=== PATIENT | male | born 1935 | race Caucasian/White ===

== ENCOUNTER 2020-08-03 12:04 | Outpatient (REF) | payer MEDICARE, SELFPAY ==
--- NOTE | ~2020-08-03 | MR_ITS ---
MRI OF THE BRAIN WITHOUT IV CONTRAST INDICATION: Parkinsonism. COMPARISON: None available. TECHNIQUE: Multiplanar multisequence MR imaging of the brain was obtained without IV contrast. FINDINGS: There is no hydrocephalus, extra-axial surface collection, or herniation. 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 The major flow voids at the skull base are preserved. There is no acute infarct on diffusion-weighted imaging. There is no intracranial hemorrhage on the gradient recalled echo acquisition. The midline structures are normal. The cerebellar tonsils are normally positioned. The cerebellum and brainstem are normal. The craniocervical junction is normal. Osseous marrow signal intensity is homogenous. The visualized soft tissues are unremarkable. MR/MR head/brain wo con IMPRESSION: - No acute intracranial findings. - There is global cerebral volume loss and there is mild chronic microangiopathy.
--- NOTE | ~2020-08-03 | XR_ITS ---
EXAMINATION: PRE-MRI SCREENING CLINICAL INFORMATION: Pre-MRI orbits COMPARISON: None TECHNIQUE: 3 views of the orbits FINDINGS: No radiopaque soft tissue foreign body about the orbits is seen. Visualized bony structures are unremarkable. Visualized paranasal sinuses are clear. XR/XR pre mri screening IMPRESSION: No radiopaque soft tissue foreign body seen about the orbits.
== END 2020-08-03 12:05 | disposition home or self-care (01) ==
LOC: HO.MRI 12:04
PROVIDERS: Visit Provider Psychiatry & Neurology Neurology
DX: G20 Parkinson's disease (principal)
CPT/HCPCS: 70551